=== PATIENT | female | born 1985 | race Caucasian/White ===

== ENCOUNTER 2019-03-22 17:42 | Emergency (ER) | payer MEDICAID ==
[~2019-03-22] VITALS: Ht 160 cm; Wt 105.7 kg
[~2019-03-22 17:42] MED LIST: CALC-1018 PO; DEP150I IM; FERR325E14 PO; FOLI1TAB19 PO; PREN-234 PO
[2019-03-22 17:56] VITALS: BP 158/60
--- NOTE | 2019-03-22 18:28 | NUR ---
Pt taken to bed 4.
--- NOTE | 2019-03-22 18:38 | NUR ---
33 Y/O F C/O WHOLE BODY NUMBNESS. PT STATES THAT THIS BEGAN AROUND 3:00PM TODAY. PT DENIES PAIN, FEVER CHILLS. 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 BED LOWERED, X1 SIDE RAIL IN PLACE. MOTHER AT BEDSIDE WITH PATIENT. NKA MEDHX: NONE
[2019-03-22] MEDS ORDERED: LORazepam 2 MG/ML VIAL IM ONE (18:45)
--- NOTE | 2019-03-22 19:06 | NUR ---
PT REEVALUATED AFTER ATIVAN, STATES SHE FEELS MORE CALM. PT RESTING, BED LOWERED. MOTHER AT BEDSIDE.
--- NOTE | 2019-03-22 19:09 | NUR ---
REPORT GIVEN TO CONRADO LAWS. CHANGE OF SHIFT.
[2019-03-22 19:20] VITALS: BP 142/58
--- NOTE | 2019-03-22 19:20 | NUR ---
Patient discharged with v/s stable. Written and verbal after care instructions given and explained. Patient verbalized understanding. Ambulatory with steady gait. All questions addressed prior to discharge. Advised to follow up with PMD, referral given
== END 2019-03-22 19:20 | disposition home or self-care (01) ==
LOC: MED 17:42
DX: F41.0 Panic disorder [episodic paroxysmal anxiety] (principal); R03.0 Elevated blood-pressure reading, without diagnosis of hypertension; Z79.899 Other long term (current) drug therapy
CPT/HCPCS: 81002; 81025; 96372; 99283; J2060

== ENCOUNTER 2020-03-08 06:09 | Emergency (ER) | payer MEDICAID ==
[~2020-03-08] VITALS: Ht 152.4 cm; Wt 113.4 kg
[2020-03-08 06:18] VITALS: BP 161/72
--- NOTE | 2020-03-08 06:27 | NUR ---
PT AMBULATED TO BED 4 WITH STEADY GAIT.
--- NOTE | 2020-03-08 06:35 | NUR ---
MD URIARTE AT BEDSIDE SPEAKING WITH PT
--- NOTE | 2020-03-08 06:40 | NUR ---
PT STARTED HAVING R HAND NUMBNESS AND PAIN LAST NIGHT. PAIN IS FROM HER FINGERS RADIATING UP TO HER ELBOW. BURNING 9/10 PAIN, INTERMITTENT. PT UNABLE TO BEND FINGERS DUE TO THE PAIN. SKIN IS INTACT, NO DEFORMITY, REDNESS OR SWELLING NOTED. RADIAL PULSE +3, UNABLE TO GRASP MY FINGERS DUE TO PAIN. PT DENIES ANY INJURY. PT PLACED IN BED 4, BED IN LOWEST POSITION AND SIDERAIL UP X 1. NKA NO HX
--- NOTE | 2020-03-08 07:05 | NUR ---
MD OCAMPO AT BEDSIDE SPEAKING WITH PT
[2020-03-08 07:23] VITALS: BP 161/72
== END 2020-03-08 07:23 | disposition home or self-care (01) ==
LOC: MED 06:09
DX: G56.01 Carpal tunnel syndrome, right upper limb (principal); R03.0 Elevated blood-pressure reading, without diagnosis of hypertension; Z79.899 Other long term (current) drug therapy
CPT/HCPCS: 81025; 99283